=== PATIENT | female | born 1985 | race Caucasian/White ===

== ENCOUNTER 2023-06-01 16:49 | Emergency (ER) | payer MEDICAID ==
[~2023-06-01] VITALS: Ht 165.1 cm; Wt 72.6 kg
[2023-06-01 17:25] VITALS: BP 111/70; PULSE 90; RESP 18; TEMP 99; O2SAT 98
[2023-06-01] MEDS ORDERED: DIPH-670 PO (19:07)
[2023-06-01] MEDS ORDERED: DOXY1TCP PO (19:07)
[2023-06-01] MEDS ORDERED: METO-485 PO (19:07)
[2023-06-01 19:16] VITALS: BP 111/70; PULSE 90; RESP 18; TEMP 99; O2SAT 98
== END 2023-06-01 19:16 | disposition home or self-care (01) ==
LOC: MED 16:49
DX: J06.9 Acute upper respiratory infection, unspecified (principal); R11.0 Nausea; Z79.899 Other long term (current) drug therapy
CPT/HCPCS: 99283